=== PATIENT | male | born 1970 | race Caucasian/White ===

== ENCOUNTER 2019-08-23 01:41 | Inpatient (IN) | payer MEDICARE, MEDICAID ==
[2019-08-23] VITALS (13 sets, daily range): BP systolic 99–144; BP diastolic 59–80
[~2019-08-23] VITALS: Ht 182.9 cm; Wt 187.3 kg
[2019-08-23] MEDS ORDERED: ONDANSETRON HCL 4MG/2ML INJ IV STA (02:16)
[2019-08-23] MEDS ORDERED: LORAZEPAM 2MG/ML CPJ ONE (02:43)
[2019-08-23] MEDS ORDERED: LEVETIRACETAM 500MG PREMIX 100 ML IV ONE (02:45)
[2019-08-23] MEDS ORDERED: LORAZEPAM 2MG/ML CPJ IV ONE (02:45)
[2019-08-23 03:12] LABS: CHLORIDE 83 mEq/L (98-107)
[2019-08-23 03:17] LABS: ETHANOL BLOOD < 10 mg/dL
[2019-08-23 03:21] LABS: BETA HYDROXYBUTYRATE 0.2 mMol/L (0.0-0.3); LDL CHOLESTEROL 114 mg/dL (5-100)
[2019-08-23 03:22] LABS: CREATINE KINASE 167 IU/L (39-308); PARTIAL THROMBOPLASTIN TIME 46.9 sec (23.4-31.0); PROTHROMBIN TIME 31.5 sec (9.6-11.0)
[2019-08-23] MEDS ORDERED: POTASSIUM CHLORIDE INJ 40 MEQ in DEXT 5% WATER 250 ML IV ONE (03:30)
[2019-08-23] MEDS ORDERED: SODIUM CHLORIDE 0.9% 1000ML BAG (SEPSIS BOLUS) IV ONE (03:30)
[2019-08-23 03:59] LABS: BASOPHILS % 0.9 % (0.0-2.0); EOSINOPHILS % 1.8 % (0.0-5.0); HEMOGLOBIN. 16.7 g/dL (14.0-18.0); LYMPHOCYTES % 15.3 % (20.0-50.0); MEAN CORPUSCULAR HEMOGLOBIN 30.1 pg (28.0-32.0); MEAN CORPUSCULAR VOLUME 90.2 fL (80.0-94.0); MEAN PLATELET VOLUME 9.4 fl (7.4-10.4); MONOCYTES % 6.8 % (2.0-8.0); NEUTROPHILS % 75.2 % (40.0-76.0); PLATELET 219 x1000/uL (130-400); RED BLOOD CELL COUNT 5.55 mill/uL (4.7-6.1); RED CELL DISTRIBUTION WIDTH 17.8 % (11.6-14.6)
[2019-08-23 04:58] LABS: CLARITY URINE CLEAR (CLEAR); COLOR URINE YELLOW (YELLOW); KETONES URINE NEGATIVE (NEGATIVE); LEUKOCYTE ESTERASE URINE NEGATIVE (NEGATIVE); NITRITE URINE NEGATIVE (NEGATIVE); OCCULT BLOOD URINE TRACE (NEGATIVE); PROTEIN URINE 2+ (NEGATIVE); SPECIFIC GRAVITY URINE 1.016 (1.005-1.030); UROBILINOGEN URINE 0.2 E.U./dL (0.2-1.0)
[2019-08-23 05:19] LABS: *AMPHETAMINES SCREEN URINE NEGATIVE (NEGATIVE); *BARBITURATES SCREEN URINE NEGATIVE (NEGATIVE); *BENZODIAZEPINES SCREEN URINE NEGATIVE (NEGATIVE); *COCAINE SCREEN URINE NEGATIVE (NEGATIVE); METHADONE URINE SCREEN NEGATIVE (NEGATIVE)
[2019-08-23 05:20] LABS: CANNABINOID URINE SCREEN NEGATIVE (NEGATIVE); PHENCYCLIDINE URINE SCREEN NEGATIVE (NEGATIVE)
[2019-08-23] MEDS ORDERED: ASPIRIN 325MG EC TABLET PO ONE (05:30)
[2019-08-23] MEDS ORDERED: IOHEXOL-350 100 ML BOTTLE ONE (07:23)
[2019-08-23] MEDS ORDERED: ETOMIDATE 2MG/ML 10ML VIAL IV ONE ×2 (07:30→07:45)
[2019-08-23] MEDS ORDERED: SUCCINYLCHOLINE CHLORIDE 200MG/10ML IV ONE ×2 (07:30→07:45)
[2019-08-23] MEDS ORDERED: PROPOFOL 10MG/ML 100ML 100 ML IV SCH (07:45)
[2019-08-23 09:02] LABS: BG BASE EXCESS 0.3 mmol/L (-2.0-2.0); BG CARBOXYHEMOGLOBIN 0.9 % (0.5-1.5); BG DEOXYHEMOGLOBIN 1.8 % (0.0-5.0); BG FRACTION INSPIRED OXYGEN 100; BG HCO3 ACT 35.2 mmol/L (22.0-26.0); BG METHEMOGLOBIN 0.5 % (0.0-1.5); BG OXYGEN SATURATION 98.2 % (92.0-98.5); BG OXYHEMOGLOBIN 96.8 % (94.0-97.0); BG PCO2 117.7 mmHg (35.0-45.0); BG PH 7.094 (7.350-7.450); BG PO2 135.6 mmHg (75.0-100.0); BG SAMPLE SITE RIGHT RADIAL; BG TIDAL VOLUME(mL) 500 mL; BG TOTAL HEMOGLOBIN 17.4 g/dL (12.0-18.0); BG VENT MODE VENT - A/C; BG VENT RATE 16 set
[2019-08-23] MEDS ORDERED: ENOXAPARIN 40MG/0.4ML SYR SUBCUT SCH (09:45)
[2019-08-23] MEDS ORDERED: NA PHOS,M-B/NA PHOS,DI-BA ENEMA 118ML PR PRN (09:45)
[2019-08-23] MEDS ORDERED: MAGNESIUM/ALUMINUM HYDROXIDE/SIMETHICONE 30ML UDC PO PRN (09:45)
[2019-08-23] MEDS ORDERED: ONDANSETRON HCL 4MG/2ML INJ IV PRN (09:45)
[2019-08-23] MEDS ORDERED: ZOLPIDEM TARTRATE 5MG TABLET PO PRN (09:45)
[2019-08-23] MEDS ORDERED: DEXTROSE 50% WATER 50ML SYRINGE IV PRN (09:45)
[2019-08-23] MEDS ORDERED: IPRATROPIUM/ALBUTEROL 0.5-3(2.5)MG/3ML NEB NEB PRN (09:45)
[2019-08-23] MEDS ORDERED: DOCUSATE SODIUM 100MG CAPSULE PO PRN (09:45)
[2019-08-23] MEDS ORDERED: CLONIDINE 0.1MG TABLET PO PRN (09:45)
[2019-08-23] MEDS ORDERED: GUAIFENESIN 200MG/10ML SUGAR FREE UDC PO PRN (09:45)
[2019-08-23] MEDS ORDERED: POTASSIUM CHLORIDE 20MEQ TABLET SR PO ONE (09:45)
[2019-08-23 10:20] LABS: CHLORIDE 108 mEq/L (98-107)
[2019-08-23] MEDS ORDERED: PIPERACILLIN/TAZ 3.375G PREMIX 50 ML IV NR (10:45)
[2019-08-23] MEDS ORDERED: ENOXAPARIN 40MG/0.4ML SYR SUBCUT NR (10:45)
[2019-08-23 10:46] LABS: T4 FREE 1.05 ng/dL (0.76-1.46)
[2019-08-23 11:02] LABS: FOLIC ACID (FOLATE) SERUM 7.3 ng/mL (>5.38)
[2019-08-23 12:34] LABS: BG BASE EXCESS 2.8 mmol/L (-2.0-2.0); BG CARBOXYHEMOGLOBIN 0.7 % (0.5-1.5); BG DEOXYHEMOGLOBIN 1.2 % (0.0-5.0); BG FRACTION INSPIRED OXYGEN 70; BG HCO3 ACT 31.5 mmol/L (22.0-26.0); BG METHEMOGLOBIN 0.2 % (0.0-1.5); BG OXYGEN SATURATION 98.8 % (92.0-98.5); BG OXYHEMOGLOBIN 97.9 % (94.0-97.0); BG PCO2 65.6 mmHg (35.0-45.0); BG PEEP (cmH2O) 0 cmH2O; BG PH 7.299 (7.350-7.450); BG PO2 137.7 mmHg (75.0-100.0); BG SAMPLE SITE LEFT RADIAL; BG TIDAL VOLUME(mL) 550 mL; BG TOTAL HEMOGLOBIN 16.1 g/dL (12.0-18.0); BG VENT MODE VENT - A/C; BG VENT RATE 20 set
[2019-08-23] MEDS ORDERED: POTASSIUM CHLORIDE 20MEQ TABLET SR PO NR (12:45)
[2019-08-23] MEDS: BLOOD SUGAR DIAGNOSTIC STRIP TEST SCH ×3 (12:50→21:31)
[2019-08-23] MEDS ORDERED: LEVETIRACETAM 500 MG in SODIUM CHLORIDE 0.9% 100 ML IV NR (13:30)
[2019-08-23] MEDS ORDERED: INSULIN GLARGINE UD 100 UNITS/ML SYR SUBCUT SCH (14:00)
[2019-08-23] MEDS ORDERED: KCL 20MEQ/100ML PREMIX 100 ML IV NR (14:00)
[2019-08-23] MEDS: SODIUM CHL 0.9% + KCL 20MEQ/L 1,000 ML IV SCH ×2 (14:33→22:00)
[2019-08-23] MEDS: ACETAMINOPHEN 325MG TABLET PO PRN (14:34)
[2019-08-23] MEDS: FENTANYL CITRATE/PF 500 MCG in SODIUM CHLORIDE 0.9% 40 ML IV PRN ×2 (14:35→17:51)
[2019-08-23] MEDS: MIDAZOLAM HCL 100 MG in DEXT 5% WATER 80 ML IV PRN (14:35)
[2019-08-23] MEDS: INSULIN LISPRO 100 UNITS/ML SUBCUT SCH ×3 (14:36→21:40)
[2019-08-23] MEDS: PIPERACILLIN/TAZOBACTAM 3.375 G in DEXT 5% WATER 100 ML IV SCH ×2 (14:36→19:33)
[2019-08-23 15:43] LABS: CREATINE KINASE MB FRACTION 3.4 ng/mL (0.5-3.6)
[2019-08-23] MEDS ORDERED: VANCOMYCIN 2,000 MG in DEXT 5% WATER 500 ML IV NR (16:00)
[2019-08-23 16:55] LABS: OPIATES URINE SCREEN NEGATIVE (NEGATIVE)
[2019-08-23] MEDS ORDERED: CARV25TA47 PO (17:09)
[2019-08-23] MEDS ORDERED: PRED10TA MT (17:09)
[2019-08-23] MEDS ORDERED: BUME2TAB8 PO (17:09)
[2019-08-23] MEDS ORDERED: METO2.5T14 MT (17:09)
[2019-08-23] MEDS ORDERED: MONT10TA21 MT (17:09)
[2019-08-23] MEDS ORDERED: ALLO300T2 PO (17:09)
[2019-08-23] MEDS ORDERED: COLC0.6C3 PO (17:09)
[2019-08-23] MEDS ORDERED: HYDR-4134 MT (17:09)
[2019-08-23] MEDS ORDERED: LOSA100T32 MT (17:09)
[2019-08-23] MEDS ORDERED: WARF-53 MT (17:09)
[2019-08-23] MEDS: IPRATROPIUM/ALBUTEROL 0.5-3(2.5)MG/3ML NEB HHN SCH ×2 (17:26→19:58)
[2019-08-23] MEDS ORDERED: PIPERACILLIN/TAZ 3.375G PREMIX 50 ML IV SCH (18:00)
[2019-08-23] MEDS: LEVETIRACETAM 500 MG in SODIUM CHLORIDE 0.9% 100 ML IV SCH (21:31)
[2019-08-24] VITALS (69 sets, daily range): BP systolic 108–167; BP diastolic 57–111
[2019-08-24] MEDS: FENTANYL CITRATE/PF 500 MCG in SODIUM CHLORIDE 0.9% 40 ML IV PRN ×3 (00:11→14:11)
[2019-08-24] MEDS: MIDAZOLAM HCL 100 MG in DEXT 5% WATER 80 ML IV PRN ×2 (00:11→14:27)
[2019-08-24 00:16] LABS: CREATINE KINASE MB FRACTION 4.7 ng/mL (0.5-3.6)
[2019-08-24] MEDS ORDERED: VANCOMYCIN 1250MG in DEXTROSE 5% WATER 250ML IV SCH (01:00)
[2019-08-24] MEDS: IPRATROPIUM/ALBUTEROL 0.5-3(2.5)MG/3ML NEB HHN SCH ×6 (01:10→20:51)
[2019-08-24] MEDS: PIPERACILLIN/TAZOBACTAM 3.375 G in DEXT 5% WATER 100 ML IV SCH ×4 (02:00→19:46)
[2019-08-24 05:53] LABS: CHLORIDE 96 mEq/L (98-107)
[2019-08-24 06:00] LABS: BASOPHILS % 0.6 % (0.0-2.0); EOSINOPHILS % 2.9 % (0.0-5.0); HEMATOCRIT. 44.3 % (42.0-52.0); HEMOGLOBIN. 14.9 g/dL (14.0-18.0); LYMPHOCYTES % 10.7 % (20.0-50.0); MEAN CORPUSCULAR HEMOGLOBIN 29.8 pg (28.0-32.0); MEAN PLATELET VOLUME 8.7 fl (7.4-10.4); MONOCYTES % 6.2 % (2.0-8.0); NEUTROPHILS % 79.6 % (40.0-76.0); PLATELET 163 x1000/uL (130-400); RED BLOOD CELL COUNT 4.98 mill/uL (4.7-6.1); RED CELL DISTRIBUTION WIDTH 17.8 % (11.6-14.6)
[2019-08-24] MEDS ORDERED: VANCOMYCIN 1500MG in DEXTROSE 5% WATER 250ML IV SCH (06:00)
[2019-08-24 06:03] LABS: PHOSPHORUS 4.2 mg/dL (2.5-4.9)
[2019-08-24 06:07] LABS: INR 3.3; PARTIAL THROMBOPLASTIN TIME 49.7 sec (23.4-31.0); PROTHROMBIN TIME 34.8 sec (9.6-11.0)
[2019-08-24] MEDS: BLOOD SUGAR DIAGNOSTIC STRIP TEST SCH ×4 (07:50→21:31)
[2019-08-24 08:00] LABS: BG CARBOXYHEMOGLOBIN 0.2 % (0.5-1.5); BG FRACTION INSPIRED OXYGEN 70; BG HCO3 ACT 29.7 mmol/L (22.0-26.0); BG METHEMOGLOBIN 0.2 % (0.0-1.5); BG OXYHEMOGLOBIN 97.6 % (94.0-97.0); BG PCO2 53.6 mmHg (35.0-45.0); BG PH 7.362 (7.350-7.450); BG PO2 112.9 mmHg (75.0-100.0); BG SAMPLE SITE RIGHT RADIAL; BG TIDAL VOLUME(mL) 550 mL; BG TOTAL HEMOGLOBIN 15.4 g/dL (12.0-18.0); BG VENT MODE VENT - A/C; BG VENT RATE 20 set
[2019-08-24] MEDS ORDERED: CLOPIDOGREL 75MG TABLET PO SCH ×2 (09:00)
[2019-08-24] MEDS: PANTOPRAZOLE SODIUM 40 MG/VIAL IV SCH (10:21)
[2019-08-24] MEDS: LEVETIRACETAM 500 MG in SODIUM CHLORIDE 0.9% 100 ML IV SCH (10:27)
[2019-08-24] MEDS ORDERED: LEVETIRACETAM 500MG PREMIX 100 ML IV SCH ×2 (11:30→21:00)
[2019-08-24] MEDS: INSULIN LISPRO 100 UNITS/ML SUBCUT SCH ×4 (12:05→21:33)
[2019-08-24] MEDS: BUDESONIDE 0.5MG/2ML NEB HHN SCH ×2 (12:14→20:51)
[2019-08-24] MEDS: INSULIN GLARGINE UD 100 UNITS/ML SYR SUBCUT SCH (12:42)
[2019-08-24] MEDS: SODIUM CHL 0.9% + KCL 20MEQ/L 1,000 ML IV SCH ×2 (12:45→21:32)
[2019-08-24] MEDS ORDERED: MORPHINE SULFATE 2 MG/ML CPJ (NOT FOR IM USE) IV PRN (17:15)
[2019-08-24] MEDS: ACETAMINOPHEN 325MG TABLET PO PRN (20:02)
[2019-08-24] MEDS: LEVETIRACETAM 1,000 MG in SODIUM CHLORIDE 0.9% 100 ML IV SCH (21:30)
[2019-08-25] VITALS (31 sets, daily range): BP systolic 106–169; BP diastolic 59–135
[2019-08-25] MEDS: IPRATROPIUM/ALBUTEROL 0.5-3(2.5)MG/3ML NEB HHN SCH ×3 (00:29→20:16)
[2019-08-25] MEDS: PIPERACILLIN/TAZOBACTAM 3.375 G in DEXT 5% WATER 100 ML IV SCH ×4 (02:33→20:45)
[2019-08-25] MEDS: ACETAMINOPHEN 325MG TABLET PO PRN (05:25)
[2019-08-25 06:11] LABS: BASOPHILS % 0.9 % (0.0-2.0); HEMATOCRIT. 43.9 % (42.0-52.0); HEMOGLOBIN. 14.8 g/dL (14.0-18.0); LYMPHOCYTES % 8.5 % (20.0-50.0); MEAN CORPUSCULAR HEMOGLOBIN 30.2 pg (28.0-32.0); MEAN CORPUSCULAR VOLUME 89.7 fL (80.0-94.0); MONOCYTES % 7.9 % (2.0-8.0); NEUTROPHILS % 79.7 % (40.0-76.0); PLATELET 161 x1000/uL (130-400); RED BLOOD CELL COUNT 4.89 mill/uL (4.7-6.1); RED CELL DISTRIBUTION WIDTH 17.5 % (11.6-14.6)
[2019-08-25 06:14] LABS: CHLORIDE 100 mEq/L (98-107)
[2019-08-25 06:22] LABS: INR 2.1; PARTIAL THROMBOPLASTIN TIME 55.5 sec (23.4-31.0); PROTHROMBIN TIME 22.1 sec (9.6-11.0)
[2019-08-25 06:33] LABS: CREATINE KINASE 394 IU/L (39-308); CREATINE KINASE MB FRACTION 1.1 ng/mL (0.5-3.6)
[2019-08-25 07:50] LABS: BG BASE EXCESS 0.9 mmol/L (-2.0-2.0); BG CARBOXYHEMOGLOBIN 0.3 % (0.5-1.5); BG DEOXYHEMOGLOBIN 3.1 % (0.0-5.0); BG FRACTION INSPIRED OXYGEN 60; BG HCO3 ACT 26.6 mmol/L (22.0-26.0); BG METHEMOGLOBIN 0.1 % (0.0-1.5); BG OXYGEN SATURATION 96.9 % (92.0-98.5); BG OXYHEMOGLOBIN 96.5 % (94.0-97.0); BG PCO2 46.5 mmHg (35.0-45.0); BG PH 7.376 (7.350-7.450); BG PO2 86.2 mmHg (75.0-100.0); BG SAMPLE SITE RIGHT RADIAL; BG TIDAL VOLUME(mL) 550 mL; BG TOTAL HEMOGLOBIN 14.9 g/dL (12.0-18.0); BG VENT MODE VENT - A/C; BG VENT RATE 20 set
[2019-08-25] MEDS: BLOOD SUGAR DIAGNOSTIC STRIP TEST SCH ×4 (08:04→21:00)
[2019-08-25] MEDS: SODIUM CHL 0.9% + KCL 20MEQ/L 1,000 ML IV SCH ×2 (08:09→18:26)
[2019-08-25] MEDS: LEVETIRACETAM 1,000 MG in SODIUM CHLORIDE 0.9% 100 ML IV SCH ×2 (08:12→21:22)
[2019-08-25] MEDS: INSULIN LISPRO 100 UNITS/ML SUBCUT SCH ×4 (08:38→21:13)
[2019-08-25] MEDS: PANTOPRAZOLE SODIUM 40 MG/VIAL IV SCH (08:51)
[2019-08-25] MEDS ORDERED: VANCOMYCIN 1250MG in DEXTROSE 5% WATER 250ML IV SCH ×4 (10:00)
[2019-08-25] MEDS ORDERED: POTASSIUM CHLORIDE 20MEQ/PACKET PO NR (10:15)
[2019-08-25] MEDS: INSULIN GLARGINE UD 100 UNITS/ML SYR SUBCUT SCH (10:51)
[2019-08-25 12:17] LABS: BG CARBOXYHEMOGLOBIN 0.6 % (0.5-1.5); BG FRACTION INSPIRED OXYGEN 100; BG HCO3 ACT 18.6 mmol/L (22.0-26.0); BG METHEMOGLOBIN 0.3 % (0.0-1.5); BG OXYHEMOGLOBIN 98.1 % (94.0-97.0); BG PCO2 37.9 mmHg (35.0-45.0); BG PH 7.309 (7.350-7.450); BG PO2 158.7 mmHg (75.0-100.0); BG SAMPLE SITE RIGHT RADIAL; BG TOTAL HEMOGLOBIN 14.4 g/dL (12.0-18.0); BG VENT MODE MASK - NRB
[2019-08-25] MEDS ORDERED: ETOMIDATE 2MG/ML 10ML VIAL IV ONE (13:30)
[2019-08-25] MEDS ORDERED: SODIUM CHLORIDE 0.9% 10ML VIAL ONE (13:30)
[2019-08-25] MEDS ORDERED: VECURONIUM BROMIDE 10 MG/VIAL IV ONE (13:30)
[2019-08-25 14:21] LABS: BG BASE EXCESS -0.5 mmol/L (-2.0-2.0); BG CARBOXYHEMOGLOBIN 0.4 % (0.5-1.5); BG DEOXYHEMOGLOBIN 4.5 % (0.0-5.0); BG FRACTION INSPIRED OXYGEN 50; BG HCO3 ACT 26.4 mmol/L (22.0-26.0); BG METHEMOGLOBIN 0.2 % (0.0-1.5); BG OXYGEN SATURATION 95.5 % (92.0-98.5); BG OXYHEMOGLOBIN 94.9 % (94.0-97.0); BG PCO2 52.2 mmHg (35.0-45.0); BG PH 7.322 (7.350-7.450); BG PO2 78.8 mmHg (75.0-100.0); BG SAMPLE SITE RIGHT RADIAL; BG TIDAL VOLUME(mL) 550 mL; BG TOTAL HEMOGLOBIN 15.3 g/dL (12.0-18.0); BG VENT MODE VENT - A/C; BG VENT RATE 20 set
[2019-08-25] MEDS: FENTANYL CITRATE/PF 500 MCG in SODIUM CHLORIDE 0.9% 40 ML IV PRN ×2 (19:30→23:34)
[2019-08-25] MEDS: BUDESONIDE 0.5MG/2ML NEB HHN SCH (20:16)
[2019-08-26] VITALS (36 sets, daily range): BP systolic 106–150; BP diastolic 39–106
[2019-08-26] MEDS: IPRATROPIUM/ALBUTEROL 0.5-3(2.5)MG/3ML NEB HHN SCH ×6 (00:12→20:18)
[2019-08-26] MEDS: PIPERACILLIN/TAZOBACTAM 3.375 G in DEXT 5% WATER 100 ML IV SCH ×4 (01:24→20:33)
[2019-08-26] MEDS: SODIUM CHL 0.9% + KCL 20MEQ/L 1,000 ML IV SCH ×2 (04:11→15:06)
[2019-08-26] MEDS: BUDESONIDE 0.5MG/2ML NEB HHN SCH ×2 (08:10→20:18)
[2019-08-26] MEDS: BLOOD SUGAR DIAGNOSTIC STRIP TEST SCH ×3 (08:21→17:23)
[2019-08-26] MEDS: LEVETIRACETAM 1,000 MG in SODIUM CHLORIDE 0.9% 100 ML IV SCH ×2 (08:32→22:32)
[2019-08-26] MEDS: PANTOPRAZOLE SODIUM 40 MG/VIAL IV SCH (08:32)
[2019-08-26] MEDS: INSULIN LISPRO 100 UNITS/ML SUBCUT SCH ×3 (08:32→17:26)
[2019-08-26 08:44] LABS: BG BASE EXCESS 0.3 mmol/L (-2.0-2.0); BG CARBOXYHEMOGLOBIN 0.2 % (0.5-1.5); BG DEOXYHEMOGLOBIN 1.9 % (0.0-5.0); BG FRACTION INSPIRED OXYGEN 50; BG HCO3 ACT 25.7 mmol/L (22.0-26.0); BG METHEMOGLOBIN 0.3 % (0.0-1.5); BG OXYGEN SATURATION 98.1 % (92.0-98.5); BG OXYHEMOGLOBIN 97.6 % (94.0-97.0); BG PCO2 44.1 mmHg (35.0-45.0); BG PH 7.383 (7.350-7.450); BG PO2 113.7 mmHg (75.0-100.0); BG SAMPLE SITE RIGHT RADIAL; BG TIDAL VOLUME(mL) 550 mL; BG TOTAL HEMOGLOBIN 14.2 g/dL (12.0-18.0); BG VENT MODE VENT - A/C; BG VENT RATE 20 set
[2019-08-26] MEDS ORDERED: POTASSIUM CHLORIDE 20MEQ/PACKET PO NR (09:15)
[2019-08-26] MEDS: INSULIN GLARGINE UD 100 UNITS/ML SYR SUBCUT SCH (09:45)
[2019-08-26] MEDS ORDERED: VANCOMYCIN 1250MG in DEXTROSE 5% WATER 250ML IV NR (12:00)
[2019-08-26] MEDS: ACETAMINOPHEN 325MG TABLET PO PRN (12:36)
[2019-08-26] MEDS: FENTANYL CITRATE/PF 500 MCG in SODIUM CHLORIDE 0.9% 40 ML IV PRN ×2 (13:35→20:31)
[2019-08-26] MEDS ORDERED: FUROSEMIDE 40MG/4ML VIAL IVP NR (17:15)
[2019-08-26] MEDS: KCL 20MEQ/100ML PREMIX 100 ML IV SCH ×2 (18:33→20:33)
[2019-08-26] MEDS ORDERED: LORAZEPAM 2MG/ML CPJ IV NR (21:00)
[2019-08-26] MEDS ORDERED: FENTANYL CITRATE/PF 1,000 MCG in SODIUM CHLORIDE 0.9% 80 ML IV PRN (22:24)
[2019-08-26] MEDS: CARVEDILOL 3.125 MG TABLET PO SCH (22:33)
[2019-08-27] VITALS (48 sets, daily range): BP systolic 102–164; BP diastolic 47–111
[2019-08-27] MEDS: IPRATROPIUM/ALBUTEROL 0.5-3(2.5)MG/3ML NEB HHN SCH ×6 (00:13→19:38)
[2019-08-27] MEDS: FENTANYL CITRATE/PF 1,000 MCG in SODIUM CHLORIDE 0.9% 80 ML IV PRN ×3 (01:50→21:26)
[2019-08-27] MEDS: PIPERACILLIN/TAZOBACTAM 3.375 G in DEXT 5% WATER 100 ML IV SCH ×4 (01:53→21:27)
[2019-08-27] MEDS: BLOOD SUGAR DIAGNOSTIC STRIP TEST SCH ×4 (06:00→18:00)
[2019-08-27] MEDS: INSULIN LISPRO 100 UNITS/ML SUBCUT SCH ×4 (06:00→18:00)
[2019-08-27] MEDS: BUDESONIDE 0.5MG/2ML NEB HHN SCH ×2 (07:40→08:19)
[2019-08-27 08:22] LABS: BG BASE EXCESS -0.1 mmol/L (-2.0-2.0); BG CARBOXYHEMOGLOBIN 0.6 % (0.5-1.5); BG DEOXYHEMOGLOBIN 3.6 % (0.0-5.0); BG FRACTION INSPIRED OXYGEN 40; BG METHEMOGLOBIN 0.2 % (0.0-1.5); BG OXYGEN SATURATION 96.4 % (92.0-98.5); BG OXYHEMOGLOBIN 95.6 % (94.0-97.0); BG PH 7.352 (7.350-7.450); BG SAMPLE SITE RIGHT RADIAL; BG TIDAL VOLUME(mL) 550 mL; BG TOTAL HEMOGLOBIN 13.9 g/dL (12.0-18.0); BG VENT MODE VENT - A/C; BG VENT RATE 20 set
[2019-08-27] MEDS: PANTOPRAZOLE SODIUM 40 MG/VIAL IV SCH (08:45)
[2019-08-27] MEDS: LEVETIRACETAM 1,000 MG in SODIUM CHLORIDE 0.9% 100 ML IV SCH ×2 (08:45→21:25)
[2019-08-27] MEDS: CARVEDILOL 3.125 MG TABLET PO SCH ×2 (08:45→21:34)
[2019-08-27] MEDS: INSULIN GLARGINE UD 100 UNITS/ML SYR SUBCUT SCH (10:07)
[2019-08-27] MEDS ORDERED: BISACODYL 10MG SUPP PR PRN (11:30)
[2019-08-27] MEDS: QUETIAPINE FUMARATE 25MG TABLET PO SCH ×2 (11:30→21:32)
[2019-08-27] MEDS ORDERED: LACTULOSE 20G/30ML UDC PO NR (11:47)
[2019-08-27] MEDS: DOCUSATE SODIUM SUGAR FREE 100MG/10ML UDC NG SCH (12:39)
[2019-08-27 13:52] LABS: INR 1.2
[2019-08-27] MEDS ORDERED: VANCOMYCIN 1250MG in DEXTROSE 5% WATER 250ML IV SCH (16:00)
[2019-08-27] MEDS: ACETYLCYSTEINE 100MG/ML 10% VIAL 4ML INH SCH (16:58)
[2019-08-27] MEDS: APIXABAN 2.5 MG TABLET PO SCH (17:59)
[2019-08-27] MEDS: LORAZEPAM 2MG/ML CPJ IV PRN (19:04)
[2019-08-28] VITALS (43 sets, daily range): BP systolic 109–156; BP diastolic 56–104
[2019-08-28] MEDS: IPRATROPIUM/ALBUTEROL 0.5-3(2.5)MG/3ML NEB HHN SCH ×6 (00:02→20:27)
[2019-08-28] MEDS: ACETYLCYSTEINE 100MG/ML 10% VIAL 4ML INH SCH ×3 (00:02→15:33)
[2019-08-28] MEDS: BLOOD SUGAR DIAGNOSTIC STRIP TEST SCH ×4 (00:07→17:28)
[2019-08-28] MEDS: INSULIN LISPRO 100 UNITS/ML SUBCUT SCH ×4 (00:10→17:37)
[2019-08-28] MEDS: PIPERACILLIN/TAZOBACTAM 3.375 G in DEXT 5% WATER 100 ML IV SCH ×4 (02:41→20:33)
[2019-08-28] MEDS: LORAZEPAM 2MG/ML CPJ IV PRN (04:53)
[2019-08-28] MEDS ORDERED: LORAZEPAM 2MG/ML CPJ IV SCH (05:00)
[2019-08-28 07:13] LABS: BASOPHILS % 1.4 % (0.0-2.0); HEMATOCRIT. 41.4 % (42.0-52.0); HEMOGLOBIN. 13.6 g/dL (14.0-18.0); MEAN CORPUSCULAR HEMOGLOBIN 29.9 pg (28.0-32.0); MEAN CORPUSCULAR VOLUME 90.9 fL (80.0-94.0); MEAN PLATELET VOLUME 9.4 fl (7.4-10.4); MONOCYTES % 6.9 % (2.0-8.0); NEUTROPHILS % 71.7 % (40.0-76.0); PLATELET 171 x1000/uL (130-400); RED BLOOD CELL COUNT 4.55 mill/uL (4.7-6.1); RED CELL DISTRIBUTION WIDTH 17.7 % (11.6-14.6)
[2019-08-28 07:33] LABS: PHOSPHORUS 2.7 mg/dL (2.5-4.9)
[2019-08-28] MEDS: QUETIAPINE FUMARATE 25MG TABLET PO SCH ×2 (08:39→20:33)
[2019-08-28] MEDS: APIXABAN 2.5 MG TABLET PO SCH ×2 (08:39→17:35)
[2019-08-28] MEDS: PANTOPRAZOLE SODIUM 40 MG/VIAL IV SCH (08:40)
[2019-08-28] MEDS: CARVEDILOL 3.125 MG TABLET PO SCH ×2 (08:40→20:34)
[2019-08-28] MEDS: DOCUSATE SODIUM SUGAR FREE 100MG/10ML UDC NG SCH (08:40)
[2019-08-28 09:12] LABS: BG BASE EXCESS 0.7 mmol/L (-2.0-2.0); BG CARBOXYHEMOGLOBIN 0.3 % (0.5-1.5); BG DEOXYHEMOGLOBIN 1.6 % (0.0-5.0); BG FRACTION INSPIRED OXYGEN 40; BG METHEMOGLOBIN 0.4 % (0.0-1.5); BG OXYGEN SATURATION 98.4 % (92.0-98.5); BG OXYHEMOGLOBIN 97.7 % (94.0-97.0); BG PCO2 39.4 mmHg (35.0-45.0); BG PH 7.421 (7.350-7.450); BG PO2 129.9 mmHg (75.0-100.0); BG SAMPLE SITE RIGHT RADIAL; BG TIDAL VOLUME(mL) 550 mL; BG TOTAL HEMOGLOBIN 14.1 g/dL (12.0-18.0); BG VENT MODE VENT - A/C; BG VENT RATE 20 set
[2019-08-28] MEDS ORDERED: POTASSIUM CHLORIDE 20MEQ TABLET SR PO NR (09:30)
[2019-08-28] MEDS: LEVETIRACETAM 1,000 MG in SODIUM CHLORIDE 0.9% 100 ML IV SCH ×2 (09:55→22:39)
[2019-08-28] MEDS ORDERED: INSULIN GLARGINE UD 100 UNITS/ML SYR SUBCUT SCH (10:00)
[2019-08-28] MEDS: FENTANYL CITRATE/PF 1,000 MCG in SODIUM CHLORIDE 0.9% 80 ML IV PRN (11:56)
[2019-08-28] MEDS: FUROSEMIDE 20MG/2ML VIAL IVP SCH ×2 (12:01→17:35)
[2019-08-28] MEDS: NITROGLYCERIN OINT 1GM/INCH UDPKT TD SCH ×2 (12:03→17:35)
[2019-08-29] VITALS (47 sets, daily range): BP systolic 97–210; BP diastolic 38–114
[2019-08-29] MEDS: INSULIN LISPRO 100 UNITS/ML SUBCUT SCH ×5 (00:20→23:19)
[2019-08-29] MEDS: BLOOD SUGAR DIAGNOSTIC STRIP TEST SCH ×4 (00:20→17:17)
[2019-08-29] MEDS: NITROGLYCERIN OINT 1GM/INCH UDPKT TD SCH ×2 (00:21→05:44)
[2019-08-29] MEDS: IPRATROPIUM/ALBUTEROL 0.5-3(2.5)MG/3ML NEB HHN SCH ×6 (00:41→20:17)
[2019-08-29] MEDS: ACETYLCYSTEINE 100MG/ML 10% VIAL 4ML INH SCH ×3 (00:42→15:45)
[2019-08-29] MEDS: FENTANYL CITRATE/PF 1,000 MCG in SODIUM CHLORIDE 0.9% 80 ML IV PRN ×2 (03:31→16:48)
[2019-08-29] MEDS: ACETAMINOPHEN 325MG TABLET PO PRN ×2 (04:16)
[2019-08-29 05:01] LABS: BASOPHILS % 1.2 % (0.0-2.0); EOSINOPHILS % 4.8 % (0.0-5.0); HEMATOCRIT. 39.5 % (42.0-52.0); LYMPHOCYTES % 17.5 % (20.0-50.0); MEAN CORPUSCULAR HEMOGLOBIN 30.1 pg (28.0-32.0); MEAN CORPUSCULAR VOLUME 91.6 fL (80.0-94.0); MEAN PLATELET VOLUME 9.6 fl (7.4-10.4); NEUTROPHILS % 69.5 % (40.0-76.0); PLATELET 189 x1000/uL (130-400); RED BLOOD CELL COUNT 4.31 mill/uL (4.7-6.1); RED CELL DISTRIBUTION WIDTH 17.7 % (11.6-14.6)
[2019-08-29 05:11] LABS: PHOSPHORUS 2.6 mg/dL (2.5-4.9)
[2019-08-29] MEDS: FUROSEMIDE 20MG/2ML VIAL IVP SCH (05:44)
[2019-08-29] MEDS: LORAZEPAM 2MG/ML CPJ IV PRN ×3 (06:43→21:19)
[2019-08-29] MEDS: QUETIAPINE FUMARATE 25MG TABLET PO SCH ×2 (08:26→21:19)
[2019-08-29] MEDS: DOCUSATE SODIUM SUGAR FREE 100MG/10ML UDC NG SCH (08:26)
[2019-08-29] MEDS: APIXABAN 2.5 MG TABLET PO SCH ×2 (08:26→16:41)
[2019-08-29] MEDS: CARVEDILOL 3.125 MG TABLET PO SCH ×3 (08:26→21:20)
[2019-08-29] MEDS: PANTOPRAZOLE SODIUM 40 MG/VIAL IV SCH (08:26)
[2019-08-29] MEDS: LEVETIRACETAM 1,000 MG in SODIUM CHLORIDE 0.9% 100 ML IV SCH ×2 (08:45→21:18)
[2019-08-29] MEDS: INSULIN GLARGINE UD 100 UNITS/ML SYR SUBCUT SCH (10:43)
[2019-08-29] MEDS ORDERED: POTASSIUM CHLORIDE 20MEQ/PACKET PO NR (12:30)
[2019-08-29] MEDS: CEFTRIAXONE 1 G PREMIX 50 ML IV SCH (16:41)
[2019-08-29 17:36] LABS: CLARITY URINE CLOUDY (CLEAR); COLOR URINE DARK YELLOW (YELLOW); KETONES URINE NEGATIVE (NEGATIVE); LEUKOCYTE ESTERASE URINE NEGATIVE (NEGATIVE); NITRITE URINE NEGATIVE (NEGATIVE); OCCULT BLOOD URINE 2+ (NEGATIVE); PROTEIN URINE 3+ (NEGATIVE); SPECIFIC GRAVITY URINE 1.019 (1.005-1.030); UROBILINOGEN URINE 0.2 E.U./dL (0.2-1.0)
[2019-08-29] MEDS: METRONIDAZOLE 500MG TABLET PO SCH (21:20)
[2019-08-30] VITALS (51 sets, daily range): BP systolic 105–177; BP diastolic 47–128
[2019-08-30] MEDS: ACETYLCYSTEINE 100MG/ML 10% VIAL 4ML INH SCH ×3 (00:28→16:50)
[2019-08-30] MEDS: IPRATROPIUM/ALBUTEROL 0.5-3(2.5)MG/3ML NEB HHN SCH ×6 (00:28→19:50)
[2019-08-30] MEDS: ACETAMINOPHEN 325MG TABLET PO PRN ×2 (04:25→16:13)
[2019-08-30] MEDS: LORAZEPAM 2MG/ML CPJ IV PRN ×3 (04:34→21:46)
[2019-08-30] MEDS: FENTANYL CITRATE/PF 1,000 MCG in SODIUM CHLORIDE 0.9% 80 ML IV PRN ×2 (04:41→15:47)
[2019-08-30] MEDS: INSULIN LISPRO 100 UNITS/ML SUBCUT SCH ×4 (05:34→23:50)
[2019-08-30 05:49] LABS: BASOPHILS % 0.9 % (0.0-2.0); EOSINOPHILS % 5.6 % (0.0-5.0); HEMATOCRIT. 39.9 % (42.0-52.0); HEMOGLOBIN. 13.3 g/dL (14.0-18.0); LYMPHOCYTES % 13.9 % (20.0-50.0); MEAN CORPUSCULAR HEMOGLOBIN 30.2 pg (28.0-32.0); MEAN PLATELET VOLUME 9.5 fl (7.4-10.4); MONOCYTES % 5.6 % (2.0-8.0); PLATELET 199 x1000/uL (130-400); RED BLOOD CELL COUNT 4.39 mill/uL (4.7-6.1); RED CELL DISTRIBUTION WIDTH 17.6 % (11.6-14.6)
[2019-08-30] MEDS: LEVETIRACETAM 1,000 MG in SODIUM CHLORIDE 0.9% 100 ML IV SCH ×2 (08:23→21:52)
[2019-08-30] MEDS: APIXABAN 2.5 MG TABLET PO SCH ×2 (08:23→16:56)
[2019-08-30] MEDS: METRONIDAZOLE 500MG TABLET PO SCH ×2 (08:23→21:46)
[2019-08-30] MEDS: QUETIAPINE FUMARATE 25MG TABLET PO SCH ×2 (08:23→21:46)
[2019-08-30] MEDS: DOCUSATE SODIUM SUGAR FREE 100MG/10ML UDC NG SCH (08:23)
[2019-08-30] MEDS: CARVEDILOL 3.125 MG TABLET PO SCH ×2 (08:24→21:46)
[2019-08-30] MEDS: PANTOPRAZOLE SODIUM 40 MG/VIAL IV SCH (08:25)
[2019-08-30 08:45] LABS: BG BASE EXCESS 1.5 mmol/L (-2.0-2.0); BG CARBOXYHEMOGLOBIN 0.7 % (0.5-1.5); BG DEOXYHEMOGLOBIN 3.5 % (0.0-5.0); BG FRACTION INSPIRED OXYGEN 40; BG HCO3 ACT 26.9 mmol/L (22.0-26.0); BG METHEMOGLOBIN 0.2 % (0.0-1.5); BG OXYGEN SATURATION 96.5 % (92.0-98.5); BG OXYHEMOGLOBIN 95.6 % (94.0-97.0); BG PCO2 45.6 mmHg (35.0-45.0); BG PH 7.389 (7.350-7.450); BG PO2 84.1 mmHg (75.0-100.0); BG PRESSURE SUPPORT 12; BG SAMPLE SITE RIGHT RADIAL; BG TIDAL VOLUME(mL) 550 mL; BG TOTAL HEMOGLOBIN 13.4 g/dL (12.0-18.0); BG VENT MODE VENT - SIMV; BG VENT RATE 10 set
[2019-08-30] MEDS: INSULIN GLARGINE UD 100 UNITS/ML SYR SUBCUT SCH (09:29)
[2019-08-30] MEDS: BLOOD SUGAR DIAGNOSTIC STRIP TEST SCH ×4 (12:02→23:50)
[2019-08-30] MEDS: CEFTRIAXONE 1 G PREMIX 50 ML IV SCH (16:24)
[2019-08-31] VITALS (51 sets, daily range): BP systolic 108–178; BP diastolic 58–125
[2019-08-31] MEDS: IPRATROPIUM/ALBUTEROL 0.5-3(2.5)MG/3ML NEB HHN SCH ×6 (00:03→20:18)
[2019-08-31] MEDS: ACETYLCYSTEINE 100MG/ML 10% VIAL 4ML INH SCH ×3 (00:04→15:53)
[2019-08-31] MEDS: LORAZEPAM 2MG/ML CPJ IV PRN ×3 (03:22→20:41)
[2019-08-31] MEDS: INSULIN LISPRO 100 UNITS/ML SUBCUT SCH ×3 (05:27→18:00)
[2019-08-31 05:30] LABS: BASOPHILS % 1.2 % (0.0-2.0); EOSINOPHILS % 5.4 % (0.0-5.0); HEMATOCRIT. 41.9 % (42.0-52.0); HEMOGLOBIN. 13.6 g/dL (14.0-18.0); LYMPHOCYTES % 21.6 % (20.0-50.0); MEAN CORPUSCULAR HEMOGLOBIN 29.8 pg (28.0-32.0); MEAN CORPUSCULAR VOLUME 91.9 fL (80.0-94.0); MEAN PLATELET VOLUME 9.4 fl (7.4-10.4); NEUTROPHILS % 65.8 % (40.0-76.0); PLATELET 216 x1000/uL (130-400); RED BLOOD CELL COUNT 4.56 mill/uL (4.7-6.1); RED CELL DISTRIBUTION WIDTH 18.1 % (11.6-14.6)
[2019-08-31 05:36] LABS: PHOSPHORUS 3.2 mg/dL (2.5-4.9)
[2019-08-31] MEDS: BLOOD SUGAR DIAGNOSTIC STRIP TEST SCH ×3 (06:00→16:52)
[2019-08-31] MEDS: FENTANYL CITRATE/PF 1,000 MCG in SODIUM CHLORIDE 0.9% 80 ML IV PRN (07:23)
[2019-08-31 07:26] LABS: BG BASE EXCESS 2.8 mmol/L (-2.0-2.0); BG CARBOXYHEMOGLOBIN 0.5 % (0.5-1.5); BG DEOXYHEMOGLOBIN 3.3 % (0.0-5.0); BG FRACTION INSPIRED OXYGEN 40; BG HCO3 ACT 28.3 mmol/L (22.0-26.0); BG METHEMOGLOBIN 0.1 % (0.0-1.5); BG OXYGEN SATURATION 96.7 % (92.0-98.5); BG OXYHEMOGLOBIN 96.1 % (94.0-97.0); BG PCO2 46.7 mmHg (35.0-45.0); BG PO2 85.9 mmHg (75.0-100.0); BG SAMPLE SITE RIGHT RADIAL; BG TIDAL VOLUME(mL) 550 mL; BG VENT MODE VENT - A/C; BG VENT RATE 16 set
[2019-08-31] MEDS: LEVETIRACETAM 1,000 MG in SODIUM CHLORIDE 0.9% 100 ML IV SCH ×2 (08:03→21:20)
[2019-08-31] MEDS: PANTOPRAZOLE SODIUM 40 MG/VIAL IV SCH (08:03)
[2019-08-31] MEDS: METRONIDAZOLE 500MG TABLET PO SCH ×2 (08:04→21:21)
[2019-08-31] MEDS: DOCUSATE SODIUM SUGAR FREE 100MG/10ML UDC NG SCH (08:04)
[2019-08-31] MEDS: CARVEDILOL 3.125 MG TABLET PO SCH ×2 (08:05→20:41)
[2019-08-31] MEDS: APIXABAN 2.5 MG TABLET PO SCH (08:05)
[2019-08-31] MEDS: QUETIAPINE FUMARATE 25MG TABLET PO SCH ×2 (08:05→21:21)
[2019-08-31] MEDS: ACETAMINOPHEN 325MG TABLET PO PRN (08:30)
[2019-08-31] MEDS: INSULIN GLARGINE UD 100 UNITS/ML SYR SUBCUT SCH (12:15)
[2019-08-31] MEDS ORDERED: DEXT 5%/0.45% NACL 1000ML 1,000 ML IV SCH (14:45)
[2019-08-31] MEDS: CEFTRIAXONE 1 G PREMIX 50 ML IV SCH (16:50)
[2019-08-31] MEDS ORDERED: ATORVASTATIN CALCIUM 10MG TABLET PO SCH (21:00)
[2019-08-31] MEDS ORDERED: ENOXAPARIN 150MG/ML SYR SUBCUT SCH (21:00)
== END 2019-08-31 22:30 | disposition short-term general hospital (02) | DRG 870 ==
LOC: ER 01:48 → CVICU 05:49 → EDBEDREQ 05:51 → EDBEDREQTM 05:51 → EDBEDREQSVC 07:46 → SUPCPDRO 09:32 → ENRESERV 10:59 → CVICU 08-24 05:30
PROVIDERS: ADMIT Internal Medicine; ATTEND Internal Medicine
PROC: 5A1955Z Respiratory Ventilation, Greater than 96 Consecutive Hours (ICD-10-PCS; principal; 2019-08-23)
PROC: 0BH18EZ Insertion of Endotracheal Airway into Trachea, Via Natural or Artificial Opening Endoscopic (ICD-10-PCS; 2019-08-23)
DX: A41.9 Sepsis, unspecified organism (principal); J96.01 Acute respiratory failure with hypoxia; N17.0 Acute kidney failure with tubular necrosis; K85.90 Acute pancreatitis without necrosis or infection, unspecified; I50.43 Acute on chronic combined systolic (congestive) and diastolic (congestive) heart failure; J96.02 Acute respiratory failure with hypercapnia; G92 Toxic encephalopathy; I13.0 Hypertensive heart and chronic kidney disease with heart failure and stage 1 through stage 4 chronic kidney disease, or unspecified chronic kidney disease; E87.1 Hypo-osmolality and hyponatremia; G40.89 Other seizures; D68.9 Coagulation defect, unspecified; E87.0 Hyperosmolality and hypernatremia; I42.9 Cardiomyopathy, unspecified; E11.65 Type 2 diabetes mellitus with hyperglycemia; E78.5 Hyperlipidemia, unspecified; E87.6 Hypokalemia; E66.01 Morbid (severe) obesity due to excess calories; I48.0 Paroxysmal atrial fibrillation; E11.22 Type 2 diabetes mellitus with diabetic chronic kidney disease; J32.4 Chronic pansinusitis; M10.9 Gout, unspecified; N18.9 Chronic kidney disease, unspecified; I69.320 Aphasia following cerebral infarction; Z79.01 Long term (current) use of anticoagulants; Z82.49 Family history of ischemic heart disease and other diseases of the circulatory system; Z87.820 Personal history of traumatic brain injury; Z79.899 Other long term (current) drug therapy
CPT/HCPCS: 31500; 36415; 36600; 70496; 70498; 71045; 76770; 80048; 80053; 80061; 80076; 80202; 80305; 80320; 81003; 82010; 82140; 82375; 82550; 82553; 82607; 82746; 82805; 82962; 83036; 83540; 83550; 83605; 83721; 83735; 83880; 84100; 84134; 84439; 84443; 84478; 84484; 85025; 86850; 86900; 87070; 87804; 93005; 93306; 93970; 94002; 94003; 94640; 94660; 99291; C9113; J0330; J0696; J1650; J1815; J1940; J1953; J2060; J2250; J2270; J2405; J2543; J2704; J3010; J3370; J3480; J3490; J7050; J7060; J7608; J7626; Q9967; G0480